=== PATIENT | male | born 1990 | race African-American/Black ===

== ENCOUNTER 2021-12-06 07:24 | Emergency (ER) | payer SELFPAY ==
[~2021-12-06] VITALS: Ht 180.3 cm; Wt 102.1 kg
[2021-12-06 09:24] VITALS: BP 132/92
[2021-12-06] MEDS ORDERED: ONDANSETRON ODT 4 MG TAB PO ONE (10:00)
[2021-12-06] MEDS ORDERED: CIPROFLOXACIN 400MG/200ML 200 ML IV ONE (10:00)
[2021-12-06] MEDS ORDERED: SODIUM CHLORIDE 0.9% 1,000 ML IV ONE (10:00)
[2021-12-06] MEDS ORDERED: CIPR500T4 PO (12:04)
[2021-12-06] MEDS ORDERED: ONDA-144 PO (12:04)
[2021-12-06 12:16] LABS: Basophils # (auto) 0 10 ^3/uL (0-0.2); Basophils % (auto) 0.5 % (0.0-2.0); Eosinophils # (auto) 0.1 10 ^3/uL (0-0.8); Eosinophils % (auto) 0.9 % (0.0-7.0); Hematocrit 47.1 % (41.0-53.0); Hemoglobin 16.1 g/dL (13.5-17.5); Lymphocytes # (auto) 1.8 10 ^3/uL (0.4-5.4); Lymphocytes % (auto) 28.6 % (10.0-50.0); Mean Corpuscular Hemoglobin 29.1 pg (28.0-32.0); Mean Corpuscular Hgb Conc. 34.2 g/dL (32.0-36.0); Mean Corpuscular Volume 85.1 fL (80.0-100.0); Monocytes # (auto) 0.9 10 ^3/uL (0-1.3); Monocytes % (auto) 13.4 % (0.0-12.0); Neutrophils # (auto) 3.6 10 ^3/uL (1.6-8.6); Neutrophils % (auto) 56.6 % (37.0-80.0); Nucleated Red Blood Cells % 0.1 %; Red Blood Cells 5.54 10^6/uL (4.5-5.90); White Blood Cell 6.4 10^3/uL (4.4-10.8)
[2021-12-06 12:36] LABS: Potassium 3.4 mmol/L (3.5-5.1)
[2021-12-06 12:46] LABS: BUN/Creatinine Ratio 12.1; Bilirubin, Total 0.9 mg/dL (0.2-1.0); Total Protein 9.2 g/dL (6.4-8.2)
[2021-12-06] MEDS ORDERED: POTASSIUM CHL 20 Meq TABLET PO ONE (13:15)
== END 2021-12-06 14:31 | disposition home or self-care (01) ==
LOC: ER 07:24
DX: K52.9 Noninfective gastroenteritis and colitis, unspecified (principal); Z20.822 Contact with and (suspected) exposure to COVID-19
CPT/HCPCS: 36415; 74176; 80053; 83690; 85025; 87426; 96365; 99284; J0744; J7030; Q0162

== ENCOUNTER 2023-01-25 00:58 | Inpatient (IN) | payer MEDICAID, OTHER ==
[~2023-01-25] VITALS: Ht 180.3 cm; Wt 106.8 kg
[~2023-01-25 00:58] MED LIST: CIPR500T4 PO; ONDA-144 PO
[2023-01-25 01:35] LABS: Basophils # (auto) 0.2 10 ^3/uL (0-0.2); Basophils % (auto) 1.4 % (0.0-2.0); Eosinophils # (auto) 0.1 10 ^3/uL (0-0.8); Hematocrit 42.2 % (41.0-53.0); Hemoglobin 14.5 g/dL (13.5-17.5); Lymphocytes % (auto) 36.1 % (10.0-50.0); Mean Corpuscular Hemoglobin 29.2 pg (28.0-32.0); Mean Corpuscular Hgb Conc. 34.4 g/dL (32.0-36.0); Mean Corpuscular Volume 84.9 fL (80.0-100.0); Monocytes # (auto) 0.8 10 ^3/uL (0-1.3); Monocytes % (auto) 7.5 % (0.0-12.0); Neutrophils # (auto) 5.9 10 ^3/uL (1.6-8.6); Nucleated Red Blood Cells % 0.1 %; Red Blood Cells 4.97 10^6/uL (4.5-5.90); Red Cell Distribution Width 13.7 % (11.8-14.3)
[2023-01-25] MEDS ORDERED: dilTIAZem 25 MG/5 ML VIAL IV ONE ×2 (01:45→02:30)
[2023-01-25 01:53] LABS: Albumin 3.4 g/dL (3.4-5.0); BUN/Creatinine Ratio 13.8; Calcium 8.9 mg/dL (8.5-10.1); Magnesium 2.1 mg/dL (1.6-2.6); Potassium 3.3 mmol/L (3.5-5.1)
[2023-01-25 01:56] LABS: Bilirubin, Total 0.4 mg/dL (0.2-1.0)
[2023-01-25] MEDS ORDERED: LACTATED RINGER'S 1,000 ML IV ONE (03:00)
[2023-01-25] MEDS ORDERED: dilTIAZem 125mg/125ml BAG KIT 125 ML IV ONE (03:45)
[2023-01-25] MEDS ORDERED: ONDANSETRON HCL 4 MG/2 ML VIAL IV PRN (06:45)
[2023-01-25] MEDS ORDERED: MORPHINE SULFATE INJ 2 MG/ml SYRG IV PRN (06:45)
[2023-01-25] MEDS ORDERED: NITROGLYCERIN 0.4 MG SL TAB SL PRN (06:45)
[2023-01-25] MEDS ORDERED: POTASSIUM CHL 20 Meq TABLET PO ONE (06:46)
[2023-01-25] MEDS ORDERED: PANTOPRAZOLE 40 MG TAB PO SCH (10:00)
[2023-01-25 14:00] VITALS: BP 125/64
[2023-01-25] MEDS ORDERED: ASPirin 81 mg TAB PO ONE (14:00)
[2023-01-25] MEDS ORDERED: ASPI1TAB20 PO (14:00)
== END 2023-01-25 14:32 | disposition home or self-care (01) | DRG 201 ==
LOC: ER 00:58 → TELE 06:37
PROVIDERS: ADMIT Nurse Practitioner; ATTEND Internal Medicine Pulmonary Disease
DX: I48.91 Unspecified atrial fibrillation (principal); D72.829 Elevated white blood cell count, unspecified; E87.6 Hypokalemia; F17.210 Nicotine dependence, cigarettes, uncomplicated; E66.01 Morbid (severe) obesity due to excess calories; M54.2 Cervicalgia; Z20.822 Contact with and (suspected) exposure to COVID-19; Z68.32 Body mass index [BMI] 32.0-32.9, adult; Z79.899 Other long term (current) drug therapy
CPT/HCPCS: 36415; 71045; 80053; 83735; 83880; 84484; 85025; 85379; 87426; 93005; 93306; 96361; 96365; 96375; 96376; 99291; G0378